=== PATIENT | female | born 2000 | race Caucasian/White ===

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

== ENCOUNTER 2023-03-09 18:24 | Emergency (ER) | payer MEDICAID, SELFPAY ==
[2023-03-09 18:26] VITALS: BP 149/85; PULSE 78; RESP 18; TEMP 36.3; O2SAT 94; BMI 49.8
--- NOTE | 2023-03-09 22:06 | EX.ED.VIS.UR ---
HPI HPI - URI History of Present Illness Chief Complaint: Sore Throat Narrative Narrative: 23-year-old female who denies significant past medical history presents with 2 weeks of sore throat. Pain is worse with swallowing. She has a known COVID exposure and her mother who has had it for over a week. She relates history that she is having pain with swallowing. She may have subjective fever as well. She states that everyone in her family has been ill with upper respiratory infection type symptoms. Admittedly, she states that she had a leftover antibiotic and has already started taking amoxicillin. ROS ROS ED ROS Narrative Constitutional: Possible subjective fever, no chills. HEENT: Positive sore throat. No neck pain. No loss of vision. No rhinorrhea. Cardiovascular: No chest pain. No palpitations. No pedal edema. Respiratory: No cough, no shortness of breath. Abdominal: No abdominal pain. No nausea. No vomiting. Genitourinary: No dysuria. No hematuria. Musculoskeletal: No myalgias. No arthralgias. Neurologic: No headaches. No dizziness. No lightheadedness. Skin: No rash. No change in color. Psychiatric: No depression. No anxiety. PFSH PFSH Medical History no medical history Allergy/AdvReac Type Severity Reaction Status Date / Time No Known Allergies Allergy Verified 03/09/23 18:25 Surgical History no surgical history Social History Smoking Status: Never smoker EXAM Physical Exam Narrative Exam Narrative: Afebrile. Vital signs noted. HEENT: Normocephalic. Atraumatic. PERRL, EOMI. Neck soft and supple. No point tenderness or step off. Airway patent. No meningismus. No drooling or trismus. No pharyngeal erythema or or exudate. TMs are clear bilaterally. Erythema. No evidence of mastoid erythema or tenderness as well. Cardiovascular: Regular rate and rhythm. No murmurs, rubs, or gallops appreciated. Respiratory: No tachypnea. Lungs clear to auscultation bilaterally. Gastrointestinal: Abdomen soft, nontender, with normoactive bowel sounds. No rebound or guarding. Neurological: Awake. Alert. Nonfocal, nonlateralizing. Skin: No rash. Normal color. No pallor. Musculoskeletal: No pedal edema. Full range of motion extremities. Const Vital Signs: 03/09/23 18:26 Temperature 97.3 F L Temperature Source Temporal Pulse Rate 78 Respiratory Rate 18 Blood Pressure 149/85 H Blood Pressure Mean 106 Pulse Ox 94 Oxygen Delivery Method Room Air MDM MDM MDM Narrative Medical decision making narrative: Frontal diagnosis strep pharyngitis versus viral pharyngitis. I do not feel that imaging is indicated. She will be swabbed for COVID and flu as well, and the most important swab would be for strep to see if she needs to continue antibiotics. Patient is afebrile here. I reviewed her swabs and she is negative for COVID and influenza. Additionally, her strep swab is negative. I do not feel that she needs further antibiotics. Given her pharyngitis, she was given 1 dose of Decadron 8 mg orally here. She will continue [id number] anti-inflammatories as needed and follow-up with her primary care provider. I feel she can be discharged safely home with follow-up. Return instructions were reviewed. Disposition is discharged home in stable condition. Discharge Plan Triage Chief Complaint: Sore Throat ED Provider: Hemanth Berg Dx/Rx/DC Orders Clinical Impression: Acute pain of both ears, Pharyngitis Instructions: ED Earache Without Infection (Adult), ED Pharyngitis, Viral Primary Care Provider: Fam Zimmerman,Out of Referrals: Fam Zimmerman,Out of [Primary Care Provider] - Activity Restrictions/Additional Instructions: Follow-up with your primary care physician in the next 3 to 5 days. Return with new or worsening symptoms. Continue [id number] analgesics such as ibuprofen or Aleve as an anti-inflammatory. You may also take Tylenol for pain. Disposition Disposition: Home, Self Care
[2023-03-09] MEDS: dexAMETHasone 4 MG Tablet 8 MG PO (23:47)
== END 2023-03-09 23:59 | disposition home or self-care (01) ==
PROVIDERS: Emergency Provider Emergency Medicine; Visit Provider Emergency Medicine
DX: J02.9 Acute pharyngitis, unspecified (principal); H92.03 Otalgia, bilateral
CPT/HCPCS: 87428; 87880; 99282

== ENCOUNTER 2024-07-13 08:11 | Emergency (ER) | payer MEDICAID, SELFPAY ==
[2024-07-13 08:11] VITALS: BP 127/84; PULSE 92; RESP 16; TEMP 36.8; O2SAT 99
--- NOTE | 2024-07-13 08:20 | EDS_ITS ---
HPI History of Present Illness Chief Complaint: Lower Extremity Injury Narrative Narrative: 24-year-old female who denies significant past medical history presents with injury to her ankle that she sustained late last night/early this morning. She states that was around midnight she was at her friend's house. There was a transition piece of metal between the linoleum and carpet that was slanted. She stepped on it incorrectly and ended up falling, twisting her left ankle. She may have suffered an inversion injury, but felt a pop in her left ankle. She now complains of swelling about the left malleolus, and has pain with weightbearing and walking. She denies hitting her head or loss of consciousness. No other injury. She took Tylenol before she went to bed. PFSH PFS Home Medications ?Medication ?Instructions ?Recorded ?Last Taken ?Type NK 03/09/23 Unknown History Allergy/AdvReac Type Severity Reaction Status Date / Time No Known Allergies Allergy Verified 03/09/23 18:25 Social History Smoking Status: Never smoker ROS ROS ED ROS Narrative Review of systems positive for left ankle pain worse with weightbearing and walking/movement. Positive swelling on lateral left ankle which she states is worsening. Denies other injury. No knee pain. No hitting of her head, no loss of consciousness, no neck pain. EXAM Physical Exam Narrative Exam Narrative: GCS 15. ABCs intact. Cardiovascular examination of is a regular rate and rhythm. Lungs are clear to auscultation bilaterally. Abdomen is soft, nontender without guarding or rebound. Neurological examination nonfocal, nonlateralizing. Focused examination of the left ankle shows diffuse swelling throughout the left lateral malleolus. Palpable dorsalis pedis pulse. No pain at the base of the fifth metatarsal. No palpable Achilles tendon deficit. Positive extension and flexion of left knee. No proximal fibular head tenderness. Const Vital Signs: 07/13/24 08:11 Temperature 98.3 F Temperature Source Oral Pulse Rate 92 Respiratory Rate 16 Blood Pressure 127/84 H Blood Pressure Mean 98 Pulse Ox 99 Oxygen Delivery Method Room Air MDM MDM MDM Narrative Medical decision making narrative: Differential diagnosis includes but not limited to left ankle sprain versus fracture. Clinically have low suspicion for Achilles tendon rupture based on her physical examination. She was given an ice pack for comfort and ibuprofen 600 mg orally. X-rays were obtained of the left ankle in 3 views and interpreted by myself independently. On my independent interpretation of her ankle x-rays, I see no evidence of an acute fracture. There is soft tissue swelling laterally. I reviewed the radiology report which confirms my independent interpretation. At this point in time, she will continue ice and elevation at home. She was placed in an Bruce wrap and given crutches to be weightbearing as tolerated. Initially she should only be touchdown weightbearing for the next few days given the acuity of her injury. I feel she can be discharged to follow-up. She was referred to podiatry on-call. [id number] medications should be sufficient for analgesia. Return instructions to the emergency department were reviewed. Disposition is discharged home in stable condition. History & Record Review Discussion w/independent historian: Patient Radiography Diagnostic Testing: Clinical Impression(s) from Imaging Studies Ankle X-Ray 07/13/24 08:35 IMPRESSION: Soft tissue swelling is visible at the lateral malleolus. No fracture or dislocation is identified. Reading Location: [facility] Discharge Plan Triage Chief Complaint: Lower Extremity Injury ED Provider: Hemanth Berg Dx/Rx/DC Orders Clinical Impression: Sprain of ankle, left, Fall Instructions: ED Sprain Ankle W X Ray Prescriptions: No Action NK Primary Care Provider: Care Physician,No Primary Referrals: Andrea Henderson DPM [Med Staff - Active Staff] - 1 Week if not improving [facility] Doctor,Out of [Non-Staff] - Activity Restrictions/Additional Instructions: Continue ice and elevation of your left ankle at home. Vecp-[id number]-krtytrv medicat ions such as Tylenol and/or ibuprofen as needed for pain. Return with new or worsening symptoms. Follow-up with podiatry in 1 week if not improving. Print Language: Spanish Disposition Disposition: Home, Self Care
[2024-07-13] MEDS: Ibuprofen 600 MG Tablet PO (08:31)
--- NOTE | 2024-07-13 08:35 | RAD_ITS ---
PROCEDURE: ANKLE MIN 3 VIEWS 07/13/2024 REASON FOR EXAM: TRAUMA, PAIN TECHNIQUE: 3 views of the left ankle COMPARISON: None FINDINGS: There is no fracture or dislocation. The ankle mortise is not widened. Soft tissue swelling is noted of the lateral malleolus. Mineralization is normal. There is no visible atherosclerosis. RAD/Ankle min 3 Views IMPRESSION: Soft tissue swelling is visible at the lateral malleolus. No fracture or dislo cation is identified. Reading Location: [facility]
[2024-07-13 08:46] VITALS: BMI 52.3
[2024-07-13 09:18] VITALS: BP 118/77; PULSE 84; RESP 16; TEMP 36.9; O2SAT 100
== END 2024-07-13 09:20 | disposition home or self-care (01) ==
PROVIDERS: Emergency Provider Emergency Medicine; Visit Provider Emergency Medicine
DX: S93.402A Sprain of unspecified ligament of left ankle, initial encounter (principal); W19.XXXA Unspecified fall, initial encounter
CPT/HCPCS: 73610; 99283